=== PATIENT | female | born 1970 | race Caucasian/White ===

== ENCOUNTER → 2023-05-23 14:03 | Outpatient (REF) | payer BC, SELFPAY | LOC: RADI 14:03 | PROVIDERS: ATTENDING PHYSICIAN Obstetrics & Gynecology Gynecology; FAMILY PHYSICIAN Nurse Practitioner Family | DX: D25.9 Leiomyoma of uterus, unspecified (principal) ==

== ENCOUNTER 2023-06-19 13:40 | Observation (INO) | payer BC, SELFPAY ==
[2023-06-19] VITALS (7 sets, daily range): BP systolic 82–137; BP diastolic 70–88; BMI 26.6
[2023-06-19 09:48] LABS: HCG, Urine Qualitative Screen Negative
[2023-06-19 09:50] LABS: INR 1.06; PT 13.8 Sec (11.4-14.6)
[2023-06-19 10:00] LABS: Blood Urea Nitrogen 19 mg/dl (7-17)
[2023-06-19] MEDS: ANCEF 10 IV (10:18)
[2023-06-19] MEDS: DECADRON 10 MG IV (10:18)
[2023-06-19] MEDS: NSS 1000 IV ×3 (10:18→23:47)
[2023-06-19] MEDS: ATIVAN 1 MG PO (10:19)
[2023-06-19] MEDS: BENADRYL 25 MG IV (10:19)
--- NOTE | 2023-06-19 10:35 | HPS.HSE ---
Family Physician
-
Family Physician: Shae Borden
Chief Complaint
-
Uterine fibroids, menorrhagia
History of Present Illness
53yo woman, , with symptomatic uterine fibroids. Worsening symptoms over the past few years, at times with associated anemia. Also has bulk symptoms with urinary frequency and incontinence. Worsening symptoms are impacting her daily activities.
Prior MRI with intramural and submucosal fibroids.
Medical History
Past Medical History
Past Medical History: Reports HTN
Past Surgical History: Reports None
Social History
Tobacco: Non-smoker
Alcohol: None
Family History
Family History: Not pertinent
Allergies / Home Medications
Allergies reflects when Allergies were last updated in [facility].
Home Medications with original date entered in [facility]
Allergy/Medication List:
NKDA
Review of Systems
-
Constitutional: Reports No Symptoms
Respiratory: Reports No Symptoms
Cardiac: Reports No Symptoms
Abdomen/GI: Reports No Symptoms
Physical Exam
Vital Signs
Vital Signs
Temp Pulse Resp BP Pulse Ox
98.0 F 82 18 126/86 100
06/19/23 09:34 06/19/23 09:34 06/19/23 09:34 06/19/23 09:34 06/19/23 09:34
Physical Exam
General: Comfortable and Conversant
HEENT: NormoCephalic and Anicteric
Respiratory: Clear
Cardiac: Regular Rhythm
Laboratory Results
-
06/19/23 09:18
Laboratory Results
PT 13.8 Sec (11.4-14.6) 06/19/23 09:18
INR 1.06 06/19/23 09:18
Data Reviewed
-
MRI: Other (Reviewed)
Impression/Plan
-
IMPRESSION:Symptomatic uterine fibroids.
PLAN: Uterine artery embolization.
[2023-06-19 11:04] LABS: % Basophils 1.1 % (0-2); % Eosinophils 3.3 % (0-6); % Immature Granulocytes 0.2 % (0-0.5); % Lymphocytes 22.6 % (20.5-51.1); % Monocytes 11.3 % (1.7-9.3); % Neutrophils 61.5 % (42.2-75.2); Absolute Basophils 0.1 10^3/uL (0-0.2); Absolute Eosinophils 0.2 10^3/uL (0-0.7); Absolute Lymphocytes 1.5 10^3/uL (1.2-3.4); Absolute Monocytes 0.7 10^3/uL (0.1-0.6); Hematocrit 31.8 % (37.0-47.0); Mean Corp Hgb Conc. 31.4 g/dL (33.0-37.0); Mean Corpuscular Hgb 21.5 pg (27.0-31.0); Mean Corpuscular Volume 68.2 fL (81.0-99.0); Mean Platelet Volume 10.7 fL (7.4-10.4); Nucleated Red Blood Cells % 0 %; Platelet Count 346 10^3/uL (130-400); Red Blood Cell Count 4.66 10^6/uL (4.20-5.40); Red Cell Dist. Width 17.4 % (11.5-14.5); White Blood Cell Count 6.5 10^3/uL (4.8-10.8)
[2023-06-19] MEDS: ROXICODONE 5 MG PO (14:04)
[2023-06-19] MEDS: DILAUDID 0.5 MG IV ×2 (15:14→20:02)
[2023-06-19] MEDS: TORADOL 15 MG IV ×2 (16:40→23:49)
--- NOTE | 2023-06-19 17:41 | W.PN.UPDATE ---
Update Note
Progress Note Update
Doing well post uterine artery embolization. Expected pain/cramping, has improved somewhat from earlier. Ate dinner without difficulty, no N/V. Right groin site with dry dressing, soft w/ no signs hematoma. Expect DC 06/20/23.
[2023-06-19] MEDS: NSS IV (23:45)
[2023-06-20 03:50] VITALS: BP 127/71
[2023-06-20] MEDS: TORADOL 15 MG IV (04:06)
[2023-06-20 06:00] VITALS: BMI 26.7
[2023-06-20] MEDS: NSS IV (06:58)
[2023-06-20 07:00] VITALS: BP 138/87
[2023-06-20] MEDS: NSS 1000 IV (09:19)
--- NOTE | 2023-06-20 09:34 | W.PN.UPDATE ---
Update Note
Progress Note Update
Patient reports severe pain last night, but feels much better this morning. She was able to eat, and voided after villalobos removal.
No groin hematoma.
OK for discharge.
[2023-06-20] MEDS: TORADOL IV (11:06)
--- NOTE | 2023-06-20 11:06 | CM ---
Spoke with patient who stated that she is all set for discharge home no needs. She lives with her spouse and stated that he will precast concrete ironworker so that she will be supervised. Spouse will drive home.
Plan: Case management will continue to follow and assist with discharge planning. Patient is returning home with spouse.
== END 2023-06-20 11:25 | disposition home or self-care (01) ==
LOC: 3 WEST ACU 13:40
PROVIDERS: ADMITTING PHYSICIAN Radiology Vascular & Interventional Radiology; FAMILY PHYSICIAN Nurse Practitioner Family; REFERRING PHYSICIAN Obstetrics & Gynecology Gynecology
DX: D25.9 Leiomyoma of uterus, unspecified (principal); N92.0 Excessive and frequent menstruation with regular cycle; I10 Essential (primary) hypertension; D64.9 Anemia, unspecified; R35.0 Frequency of micturition; R32 Unspecified urinary incontinence
CPT/HCPCS: 36246; 36415; 37242; 75736; 76937; 81025; 82565; 84520; 85025; 85610; 99152; 99153; C1769; C1887; G0378

== ENCOUNTER → 2024-05-07 10:18 | Outpatient (REF) | payer BC, SELFPAY | LOC: HWWDC 10:18 | PROVIDERS: ATTENDING PHYSICIAN Obstetrics & Gynecology Gynecology; FAMILY PHYSICIAN Nurse Practitioner Family | DX: Z12.31 Encounter for screening mammogram for malignant neoplasm of breast (principal) | CPT/HCPCS: 77063; 77067 ==

== ENCOUNTER → 2024-05-18 09:40 | Outpatient (REF) | payer BC, SELFPAY | LOC: WDC 09:40 | PROVIDERS: ATTENDING PHYSICIAN Obstetrics & Gynecology Gynecology; FAMILY PHYSICIAN Nurse Practitioner Family | DX: R92.8 Other abnormal and inconclusive findings on diagnostic imaging of breast (principal) | CPT/HCPCS: 76642 ==